=== PATIENT | female | born 1970 | race Hispanic/Latino ===

== ENCOUNTER 2020-06-13 12:16 | Outpatient (CLI) | payer OTHER | END 2020-06-13 12:17 | disposition home or self-care (01) | LOC: CSHMAMMO 12:16 | PROVIDERS: ATTEND Family Medicine | DX: N63.20 Unspecified lump in the left breast, unspecified quadrant (principal) | CPT/HCPCS: G0279 ==

== ENCOUNTER 2022-05-11 15:24 | Outpatient (CLI) | payer BC | END 2022-05-11 15:25 | disposition home or self-care (01) | LOC: CSHULT 15:24 | PROVIDERS: ATTEND Family Medicine | DX: N83.202 Unspecified ovarian cyst, left side (principal) | CPT/HCPCS: 76856 ==

== ENCOUNTER 2022-06-12 08:43 | Outpatient (CLI) | payer BC ==
[2022-06-12] MEDS ORDERED: Magnevist 469MG/ML 20 ML VIAL ONE (10:01)
== END 2022-06-12 08:44 | disposition home or self-care (01) ==
LOC: CSHMRI 08:43
PROVIDERS: ATTEND Family Medicine
DX: N83.8 Other noninflammatory disorders of ovary, fallopian tube and broad ligament (principal); S76.812A Strain of other specified muscles, fascia and tendons at thigh level, left thigh, initial encounter; S76.811A Strain of other specified muscles, fascia and tendons at thigh level, right thigh, initial encounter; M67.952 Unspecified disorder of synovium and tendon, left thigh; M67.951 Unspecified disorder of synovium and tendon, right thigh
CPT/HCPCS: 72197

== ENCOUNTER 2024-12-08 13:49 | Outpatient (CLI) | payer BC | END 2024-12-08 13:50 | disposition home or self-care (01) | LOC: CSHULT 13:49 | DX: N83.202 Unspecified ovarian cyst, left side (principal) | CPT/HCPCS: 76856 ==

== ENCOUNTER 2025-02-14 12:14 | Outpatient (CLI) | payer BC | END 2025-02-14 12:15 | disposition home or self-care (01) | LOC: CSHULT 12:14 | PROVIDERS: ATTEND Internal Medicine | DX: N83.202 Unspecified ovarian cyst, left side (principal) | CPT/HCPCS: 76856 ==